=== PATIENT | female | born 1960 | race African-American/Black ===

== ENCOUNTER 2017-09-24 16:03 | Emergency (ER) | payer MEDICARE, MEDICAID ==
[~2017-09-24] VITALS: Ht 160 cm; Wt 127.0 kg
[~2017-09-24 16:03] MED LIST: AMBIEN10 MG PO; ATIVAN2 MG PO; BACTRIM DS 8001 TA1 PO; BENADRYL50 MG PO; COMBIVENT1 ARO IH; CORDROL20 MG PO; DALI500T PO; DUONEB 3ML 3 MG/3 ML INH; FLONASE ALLERG9.9 ML NAS; KEFLEX500 MG PO; MEDROL DOSEPAK4 MG PO; NICODERM C21 MG/24 H TD; NORVIR100 M1 PO; OMNICEF300 MG PO; OSCAL,OYSTER S500 MG PO; PREDNICOT10 MG PO; PREDNICOT20 MG PO; PREDNISONE10 MG PO; PREDNISONE20 M1 PO; PRENATAL1 TA4 PO; PROZAC40 MG PO; PULMICORT RESP0.5 M1 INH; RETROVIR100 MG PO; REYATAZ300 MG PO; ROBITUSSIN AC 110 ML PO; SINGULAIR10 MG PO; TRAMADOL HCL50 MG PO; TRAVADA; TRUVADA 200 MG-1 TA1 PO; TUSSIN DM 10 M120 M1 PO; ULTRAM50 MG PO; VALIUM10 MG PO; WELLBUTRIN XL300 MG PO; ZESTRIL10 MG PO; ZITHROMAX Z PA250 MG PO; ZITHROMAX250 MG PO; ZOFRAN ODT4 MG SL; ZOFRAN4 MG PO
[2017-09-24 16:25] LABS: BASO % 0.4 % (0.0-1.0); EOS # 0.1 10*3/uL (0.0-0.4); HEMATOCRIT 38.1 % (37.0-47.0); HEMOGLOBIN 11.5 g/dl (12.0-16.0); LYMPH # 2.1 10*3/uL (1.3-4.4); LYMPH % 21.5 % (27.0-41.0); MEAN CELL VOLUME 92.3 fl (81.0-99.0); MEAN CORPUSCULAR HGB 27.8 pg (27.0-31.0); MEAN CORPUSCULAR HGB CONC 30.2 g/dl (33.0-37.0); MEAN PLATELET VOLUME 11.4 fl (9.6-12.3); MONO # 0.6 10*3/uL (0.1-1.0); MONO % 6.4 % (3.0-9.0); NEUT # 6.8 10*3/uL (2.3-7.9); NEUT % 70.3 % (47.0-73.0); PLATELET COUNT AUTOMATED 217 10*3/uL (130-400); RED BLOOD COUNT 4.13 10*6/uL (4.10-5.10); RED CELL DISTRI WIDTH 12.8 % (0-14.5); WHITE BLOOD COUNT 9.6 10*3/uL (4.8-10.8)
[2017-09-24 16:33] LABS: ACT PARTIAL THROMBO TIME 28.8 SECONDS (20.8-31.5)
[2017-09-24 16:41] LABS: ALBUMIN 3.5 gm/dl (3.1-4.5); ALKALINE PHOSPHATASE 87 U/L (45-117); BUN 9 mg/dl (7-24); CHLORIDE 108 mmol/L (98-107); CREATININE 0.94 mg/dL (0.55-1.02); POTASSIUM 3.7 mmol/L (3.5-5.1); SGOT/AST 15 IU/L (3-35); SGPT/ALT 22 U/L (12-78); SODIUM 143 mmol/L (136-145); TOTAL PROTEIN 7.4 gm/dL (6.4-8.2); TROPONIN I < 0.015 ng/ml (<0.045)
[2017-09-24] MEDS ORDERED: PREDNISONE20 M1 PO (17:44)
[2017-09-24] MEDS ORDERED: VIBRAMYCIN100 MG PO (17:49)
[2017-09-24] MEDS ORDERED: DUONEB 3 MG/3 ML3 M1 INH (17:51)
== END 2017-09-24 18:05 | disposition home or self-care (01) ==
LOC: ED 16:03
PROVIDERS: Emergency Medicine
DX: J44.1 Chronic obstructive pulmonary disease with (acute) exacerbation (principal); Z79.899 Other long term (current) drug therapy; Z88.6 Allergy status to analgesic agent; Z88.1 Allergy status to other antibiotic agents

== ENCOUNTER 2018-09-02 05:11 | Emergency (ER) | payer OTHER ==
[~2018-09-02] VITALS: Ht 165.1 cm; Wt 116.1 kg
--- NOTE | ~2018-09-02 | EKG ---
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
--- NOTE | ~2018-09-02 | EKG ---
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 Prolonged QTc interval Baseline wander in lead(s) III Electronically Signed On 09-04-2018 4:29:22 PDT by Babita Gaming CM:EKGRPT:ELECTROCARDIOGRAM REPORT [id number] SOPHIE STONE MD EPIPHMIKEL DRAFT REPORT SOPHIE STONE MD
--- NOTE | ~2018-09-02 | EKG ---
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
[~2018-09-02 05:11] MED LIST changes: +DUONEB 3 MG/3 ML3 M1 INH; +VIBRAMYCIN100 MG PO
[2018-09-02 05:34] LABS: BASO % 0.4 % (0.0-1.0); EOS # 0.1 10*3/uL (0.0-0.4); EOS % 1.2 % (1.0-4.0); HEMATOCRIT 40.7 % (37.0-47.0); HEMOGLOBIN 12.5 g/dl (12.0-16.0); LYMPH % 42.4 % (27.0-41.0); MEAN CORPUSCULAR HGB 29.5 pg (27.0-31.0); MEAN CORPUSCULAR HGB CONC 30.7 g/dl (33.0-37.0); MEAN PLATELET VOLUME 11.3 fl (9.6-12.3); MONO # 0.6 10*3/uL (0.1-1.0); MONO % 6.6 % (3.0-9.0); NEUT # 4.6 10*3/uL (2.3-7.9); NEUT % 48.9 % (47.0-73.0); PLATELET COUNT AUTOMATED 207 10*3/uL (130-400); RED BLOOD COUNT 4.24 10*6/uL (4.10-5.10); RED CELL DISTRI WIDTH 13.9 % (0-14.5); WHITE BLOOD COUNT 9.4 10*3/uL (4.8-10.8)
[2018-09-02 05:47] LABS: ACT PARTIAL THROMBO TIME 25.1 SECONDS (20.0-32.1)
[2018-09-02 05:52] LABS: ALBUMIN 3.9 gm/dl (3.1-4.5); CREATININE 1.61 mg/dL (0.55-1.02); POTASSIUM 4.6 mmol/L (3.5-5.1); TOTAL PROTEIN 7.1 gm/dL (6.4-8.2); TROPONIN I 0.025 ng/ml (<0.045)
== END 2018-09-02 08:32 | disposition short-term general hospital (02) ==
LOC: ED 05:11
PROVIDERS: Emergency Medicine Emergency Medical Services
DX: I50.9 Heart failure, unspecified (principal); R07.9 Chest pain, unspecified; J44.9 Chronic obstructive pulmonary disease, unspecified; Z88.8 Allergy status to other drugs, medicaments and biological substances; Z88.1 Allergy status to other antibiotic agents; Z79.899 Other long term (current) drug therapy